=== PATIENT | female | born 1965 | race Caucasian/White ===

== ENCOUNTER 2019-07-09 14:41 | Emergency (ER) | payer OTHER ==
[~2019-07-09] VITALS: Ht 154.9 cm; Wt 63.5 kg
[2019-07-09 14:42] VITALS: Ht 154.9 cm; Wt 63.5 kg
[2019-07-09 15:11] LABS: PLATELET COUNT 211 x10^3mcL (130-400)
[2019-07-09 15:27] LABS: RED CELL DISTRIBUTION WIDTH 17.1 % (11.5-14.5)
[2019-07-09 15:47] LABS: BAND NEUTROPHIL 0 % (0-10); BASOPHIL 0 % (0-2); MONOCYTE 1 % (0-7); SEGMENTED NEUTROPHILS 67 % (37-75); rbc morphology (normal/abnorm) ABNORMAL (NORMAL)
[2019-07-09 15:59] LABS: CALCIUM 8.8 mg/dL (8.5-10.1); CARBON DIOXIDE 26.1 mmol/L (21-32); CHLORIDE SERUM 105 mmol/L (98-107); CREATININE SERUM 0.9 mg/dL (0.6-1.0); GFR1 > 60 mL/min; GLUCOSE SERUM 107 mg/dL (74-106); POTASSIUM SERUM 3.8 mmol/L (3.5-5.1); SODIUM SERUM 141 mmol/L (136-145)
[2019-07-09 16:04] LABS: ALBUMIN 3.6 g/dL (3.4-5.0); ALKALINE PHOSPHATASE 79 U/L (46-116); ALT/SGPT 19 U/L (14-59); AST/SGOT 22 U/L (15-37); BILIRUBIN TOTAL 0.3 mg/dL (0.20-1.00); TOTAL PROTEIN, SERUM 7.3 g/dL (6.4-8.2)
[2019-07-09 17:09] VITALS: BP 138/85
== END 2019-07-09 17:09 | disposition home or self-care (01) ==
LOC: ED 14:41
DX: G89.29 Other chronic pain (principal); M25.561 Pain in right knee; R07.89 Other chest pain; Z98.84 Bariatric surgery status; Z98.890 Other specified postprocedural states; Z88.0 Allergy status to penicillin; Z88.1 Allergy status to other antibiotic agents
CPT/HCPCS: 36415; 85378; Q0092

== ENCOUNTER 2020-07-03 19:57 | Emergency (ER) | payer OTHER ==
[~2020-07-03] VITALS: Ht 154.9 cm; Wt 72.6 kg
[2020-07-03 20:11] VITALS: Ht 154.9 cm; Wt 72.6 kg
[2020-07-03 21:19] LABS: BASOPHIL % 1.1 % (0.2-1.3); PLATELET COUNT 228 x10^3mcL (179-408)
[2020-07-03 21:21] LABS: RED CELL DISTRIBUTION WIDTH 18.4 % (12.3-17.7)
[2020-07-03 22:37] LABS: CALCIUM 8.7 mg/dL (8.5-10.1); CARBON DIOXIDE 29.8 mmol/L (21-32); CHLORIDE SERUM 104 mmol/L (98-107); CREATININE SERUM 0.9 mg/dL (0.6-1.0); GFR1 > 60 mL/min; GLUCOSE SERUM 98 mg/dL (74-106); POTASSIUM SERUM 4.3 mmol/L (3.5-5.1); SODIUM SERUM 138 mmol/L (136-145)
[2020-07-03 22:46] LABS: ALBUMIN 3.6 g/dL (3.4-5.0); ALKALINE PHOSPHATASE 58 U/L (46-116); ALT/SGPT 21 U/L (14-59); AST/SGOT 25 U/L (15-37); BILIRUBIN TOTAL 0.28 mg/dL (0.20-1.00); LIPASE 99 IU/L (73-393); TOTAL PROTEIN, SERUM 7.1 g/dL (6.4-8.2)
[2020-07-03 23:10] VITALS: BP 118/61
== END 2020-07-03 23:10 | disposition home or self-care (01) ==
LOC: ED 19:57
PROVIDERS: Student in an Organized Health Care Education/Training Program
DX: K59.00 Constipation, unspecified (principal); G89.29 Other chronic pain; R10.33 Periumbilical pain; Z98.890 Other specified postprocedural states; Z98.84 Bariatric surgery status; Z88.0 Allergy status to penicillin; Z88.1 Allergy status to other antibiotic agents